=== PATIENT | female | born 1990 | race Caucasian/White ===

== ENCOUNTER → 2021-02-11 | Outpatient (CLI) | payer BC ==
[~2021-02-11] MED LIST: ALLEGRA ALLERGY60 MG PO; PROTONIX 40 MG40 M1 PO
== END ==
LOC: RAD 09:30
DX: K21.9 Gastro-esophageal reflux disease without esophagitis (principal)
CPT/HCPCS: 74220

== ENCOUNTER → 2021-02-27 | Day surgery (SDC) | payer BC | END | disposition home or self-care (01) | LOC: OR 02-25 09:45 | DX: K29.50 Unspecified chronic gastritis without bleeding (principal); K21.9 Gastro-esophageal reflux disease without esophagitis; Z79.899 Other long term (current) drug therapy | CPT/HCPCS: 84703; J2704; J7120 ==